=== PATIENT | female | born 1965 | race Caucasian/White ===

== ENCOUNTER → 2018-05-07 09:08 | Outpatient (CLI) | payer OTHER, SELFPAY ==
[2018-05-07 11:52] LABS: D Dimer 234 ng/mL (<230)
== END ==
PROVIDERS: Family Provider Family Medicine; Visit Provider Physician Assistant
DX: M25.562 Pain in left knee (principal)
CPT/HCPCS: 36415; 85379

== ENCOUNTER → 2018-10-12 07:16 | Outpatient (CLI) | payer OTHER, SELFPAY ==
[2018-10-12 07:59] LABS: Add Manual Diff / Slide Review NO; Basophils Absolute Auto 100 /uL (0-100); Eosinophils Absolute Auto 100 /uL (0-450); Eosinophils Percent Auto 2.9 % (2-4); Hemoglobin 14.3 g/dL (12.0-16.0); Lymphocytes Absolute Auto 1200 /uL (1100-4500); Lymphocytes Percent Auto 24.4 % (25-40); Mean Corpuscular HGB Conc 33.2 % (30-36); Mean Corpuscular Hemoglobin 30.4 PG (26-34); Mean Corpuscular Volume 91.5 fL (80-100); Monocytes Absolute Auto 300 /uL (0-900); Neutrophils Absolute Auto 3100 /uL (1500-7000); Neutrophils Percent Auto 64.7 % (50-75); Platelet Count 157 X10^3/uL (150-400); Red Blood Cell Count 4.69 X10^6/uL (4.0-5.2); Red Cell Distribution Width 13.3 % (11.6-14.8); White Blood Cell Count 4.8 X10^3/uL (4.5-11.0)
[2018-10-12 08:09] LABS: Alanine Aminotransferase 35 IU/L (9-52); Albumin 4.2 g/dL (3.5-5.0); Albumin Globulin Ratio 1.6 (1.0-2.8); Alkaline Phosphatase 59 U/L (38-126); Aspartate Aminotransferase 35 IU/L (14-36); BUN Creatinine Ratio 31.3 (6-22); Bilirubin Total 0.3 mg/dL (0.2-1.3); Blood Urea Nitrogen 25 mg/dL (7-17); Carbon Dioxide 28 mmol/L (22-32); Chloride 103 mmol/L (98-107); Cholesterol 141 mg/dL (140-199); Estimated Glomerular Filt Rate > 60.0 mL/min (>60); Globulin 2.6 g/dL (1.7-4.1); Glucose 83 mg/dL (70-100); HDL Cholesterol 48 mg/dL (40-60); HEMOLYSIS < 15 (0-50); LDL Cholesterol Calculated 79 mg/dL (<100); Potassium 4.1 mmol/L (3.4-5.1); Sodium 140 mmol/L (137-145); Total Protein 6.8 g/dL (6.3-8.2); Triglycerides 71 mg/dL (35-150)
[2018-10-12 08:51] LABS: Free T3, Triiodothyronine Free 3.14 pg/mL (2.77-5.27); Free T4, Direct Thyroxine 1.15 ng/dL (0.78-2.19)
[2018-10-12 09:05] LABS: Thyroid Stimulating Hormone 3.28 uIU/mL (0.47-4.68)
[2018-10-14 14:21] LABS: Dehydroepiandrosterone Sulfate 17 mcg/dL (8-188)
== END ==
PROVIDERS: PCP Family Medicine; Visit Provider Family Medicine
DX: Z00.00 Encounter for general adult medical examination without abnormal findings (principal); Z13.220 Encounter for screening for lipoid disorders; Z78.0 Asymptomatic menopausal state; N95.9 Unspecified menopausal and perimenopausal disorder
CPT/HCPCS: 36415; 80053; 80061; 82627; 84439; 84443; 84481; 85025

== ENCOUNTER → 2018-12-16 10:53 | Outpatient (CLI) | payer OTHER, SELFPAY ==
[2018-12-19 00:11] LABS: Fecal Immunochemical Test NOT DETECTED (NOT DETECTED)
== END ==
PROVIDERS: PCP Family Medicine; Visit Provider Family Medicine
DX: Z12.11 Encounter for screening for malignant neoplasm of colon (principal)
CPT/HCPCS: 82274

== ENCOUNTER → 2019-06-07 16:25 | Outpatient (CLI) | payer OTHER, SELFPAY ==
[2019-06-07 18:14] LABS: HIV 1 & 2 Ab/Ag 4th Gen Combo NEGATIVE (NEGATIVE); Hep C Virus Ab w/Reflex Quant NEGATIVE s/c (NEGATIVE)
[2019-06-07 18:43] LABS: Urine N gonorrhoeae NOT DETECTED
[2019-06-07 19:35] LABS: Urine Chlamydia NOT DETECTED
[2019-06-09 17:38] LABS: RPR Screen Nonreactive (Nonreactive)
== END ==
PROVIDERS: PCP Family Medicine; Visit Provider Family Medicine
DX: Z11.3 Encounter for screening for infections with a predominantly sexual mode of transmission (principal)
CPT/HCPCS: 36415; 86592; 86803; 87389; 87491; 87591

== ENCOUNTER → 2021-03-30 07:16 | Outpatient (CLI) | payer OTHER, SELFPAY ==
[2021-04-03 18:07] LABS: Fecal Immunochemical Test Negative (Negative)
== END ==
PROVIDERS: PCP Family Medicine; Referring Provider Family Medicine; Visit Provider Family Medicine
DX: Z12.11 Encounter for screening for malignant neoplasm of colon (principal)
CPT/HCPCS: 82274

== ENCOUNTER → 2021-03-31 08:01 | Outpatient (CLI) | payer OTHER, SELFPAY ==
[2021-04-06 08:42] LABS: Alanine Aminotransferase 33 IU/L (<35); Albumin 3.4 g/dL (3.5-5.0); Albumin Globulin Ratio 1.7 (1.0-2.8); Alkaline Phosphatase 50 U/L (38-126); Aspartate Aminotransferase 47 IU/L (14-36); BUN Creatinine Ratio 42.3 (6-22); Blood Urea Nitrogen 30 mg/dL (7-17); Calcium 8.7 mg/dL (8.4-10.2); Carbon Dioxide 27 mmol/L (22-32); Chloride 104 mmol/L (98-107); Cholesterol 177 mg/dL (140-199); Estimated Glomerular Filt Rate > 60.0 mL/min (>60); Glucose 85 mg/dL (70-100); HDL Cholesterol 66 mg/dL (40-60); HEMOLYSIS < 15 (0-50); LDL Cholesterol Calculated 96 mg/dL (<100); Potassium 4.3 mmol/L (3.4-5.1); Sodium 136 mmol/L (137-145); Total Protein 5.4 g/dL (6.3-8.2); Triglycerides 75 mg/dL (35-150)
[2021-04-06 08:45] LABS: Bilirubin Total < 0.1 mg/dL (0.2-1.3)
== END ==
PROVIDERS: PCP Family Medicine; Referring Provider Family Medicine; Visit Provider Family Medicine
DX: Z13.1 Encounter for screening for diabetes mellitus (principal); Z13.220 Encounter for screening for lipoid disorders; E03.9 Hypothyroidism, unspecified
CPT/HCPCS: 36415; 80053; 80061; 84443

== ENCOUNTER → 2021-05-08 06:46 | Outpatient (CLI) | payer OTHER, SELFPAY ==
[2021-05-08 08:08] LABS: Alanine Aminotransferase 21 IU/L (<35); Albumin 3.9 g/dL (3.5-5.0); Alkaline Phosphatase 58 U/L (38-126); Aspartate Aminotransferase 34 IU/L (14-36); BUN Creatinine Ratio 31.7 (6-22); Bilirubin Total 0.4 mg/dL (0.2-1.3); Blood Urea Nitrogen 20 mg/dL (7-17); Calcium 9.6 mg/dL (8.4-10.2); Carbon Dioxide 29 mmol/L (22-32); Chloride 106 mmol/L (98-107); Estimated Glomerular Filt Rate > 60.0 mL/min (>60); Glucose 102 mg/dL (70-100); HEMOLYSIS < 15 (0-50); Sodium 138 mmol/L (137-145); Total Protein 5.9 g/dL (6.3-8.2)
[2021-05-08 08:18] LABS: Potassium 5.6 mmol/L (3.4-5.1)
== END ==
PROVIDERS: PCP Family Medicine; Referring Provider Family Medicine; Visit Provider Family Medicine
DX: R74.01 Elevation of levels of liver transaminase levels (principal)
CPT/HCPCS: 36415; 80053

== ENCOUNTER → 2021-06-02 08:02 | Outpatient (CLI) | payer OTHER, SELFPAY ==
[2021-06-02 09:08] LABS: BUN Creatinine Ratio 28.8 (6-22); Blood Urea Nitrogen 21 mg/dL (7-17); Carbon Dioxide 29 mmol/L (22-32); Chloride 102 mmol/L (98-107); Estimated Glomerular Filt Rate > 60.0 mL/min (>60); Glucose 95 mg/dL (70-100); HEMOLYSIS < 15 (0-50); Potassium 4.3 mmol/L (3.4-5.1); Sodium 134 mmol/L (137-145)
== END ==
PROVIDERS: PCP Family Medicine; Referring Provider Family Medicine; Visit Provider Family Medicine
DX: E87.5 Hyperkalemia (principal)
CPT/HCPCS: 36415; 80048

== ENCOUNTER → 2021-07-23 16:07 | Outpatient (CLI) | payer OTHER, SELFPAY ==
[2021-07-23 16:38] LABS: COVID19 -Nasal RAPID Negative (Negative)
== END ==
PROVIDERS: PCP Family Medicine; Referring Provider Physician Assistant; Visit Provider Physician Assistant
DX: Z20.822 Contact with and (suspected) exposure to COVID-19 (principal)
CPT/HCPCS: 87635

== ENCOUNTER → 2022-04-09 07:24 | Outpatient (CLI) | payer OTHER, SELFPAY ==
[2022-04-09 08:25] LABS: Add Manual Diff / Slide Review NO; Basophils Absolute Auto 0 /uL (0-100); Basophils Percent Auto 0.8 % (0-2); Eosinophils Absolute Auto 300 /uL (0-450); Eosinophils Percent Auto 5.5 % (2-4); Hematocrit 39.9 % (36-46); Hemoglobin 13.6 g/dL (12.0-16.0); Lymphocytes Absolute Auto 1600 /uL (1100-4500); Lymphocytes Percent Auto 33.4 % (25-40); Mean Corpuscular HGB Conc 34.1 % (30-36); Mean Corpuscular Hemoglobin 30.6 PG (26-34); Mean Corpuscular Volume 89.6 fL (80-100); Monocytes Absolute Auto 400 /uL (0-900); Monocytes Percent Auto 7.5 % (3-14); Neutrophils Absolute Auto 2500 /uL (1500-7000); Neutrophils Percent Auto 52.8 % (50-75); Platelet Count 182 X10^3/uL (150-400); Red Blood Cell Count 4.45 X10^6/uL (4.0-5.2); Red Cell Distribution Width 13.1 % (11.6-14.8); White Blood Cell Count 4.7 X10^3/uL (4.5-11.0)
[2022-04-09 08:49] LABS: Alanine Aminotransferase 21 IU/L (<35); Albumin Globulin Ratio 1.4 (1.0-2.8); Alkaline Phosphatase 70 U/L (38-126); Aspartate Aminotransferase 32 IU/L (14-36); BUN Creatinine Ratio 23.4 (6-22); Bilirubin Total 0.4 mg/dL (0.2-1.3); Blood Urea Nitrogen 15 mg/dL (7-17); Calcium 8.4 mg/dL (8.4-10.2); Carbon Dioxide 26 mmol/L (22-32); Chloride 102 mmol/L (98-107); Cholesterol 188 mg/dL (140-199); Estimated Glomerular Filt Rate > 60 mL/min (>60); Globulin 2.9 g/dL (1.7-4.1); Glucose 92 mg/dL (70-100); HDL Cholesterol 60 mg/dL (40-60); HEMOLYSIS 17 (0-50); LDL Cholesterol Calculated 102 mg/dL (<100); Sodium 137 mmol/L (137-145); Total Protein 6.9 g/dL (6.3-8.2); Triglycerides 128 mg/dL (35-150)
[2022-04-09 09:07] LABS: Free T3, Triiodothyronine Free 3.54 pg/mL (2.77-5.27); Free T4, Direct Thyroxine 1.04 ng/dL (0.78-2.19)
[2022-04-09 09:20] LABS: TSH w/ Reflex to FT4 2.72 uIU/mL (0.47-4.68)
== END ==
PROVIDERS: PCP Family Medicine; Referring Provider Family Medicine; Visit Provider Family Medicine
DX: E03.9 Hypothyroidism, unspecified (principal); R68.89 Other general symptoms and signs; Z13.9 Encounter for screening, unspecified
CPT/HCPCS: 36415; 80053; 80061; 84439; 84443; 84481; 85025

== ENCOUNTER → 2022-04-13 09:36 | Outpatient (CLI) | payer OTHER, SELFPAY ==
--- NOTE | 2022-04-13 09:39 | DI.MRI.S_ITS ---
PROCEDURE: MR ABDOMEN WO/W CON INDICATIONS: HEPATOMEGALY TECHNIQUE: Coronal HASTE, axial 2D FLASH in- and [id number]; axial breath-hold T2 FSE. Dynamic axial VIBE during the administration of contrast; post-contrast coronal VIBE or 2D FLASH with fat saturation from the hepatic dome to the iliac crests. Restricted diffusion weighted imaging and ADC may be performed. 20 cc ProHance IV contrast. COMPARISON: None. FINDINGS: Image quality: Good. Lung bases: No basal pleural effusions. Heart size is normal. Solid organs: Liver is prominent size. There are 3 hepatic lesions identified. -segment 7 measuring 5.3 x 4.9 cm, (07/23). Possible T2 hyperintense central scar. -segment 8 at the dome measuring 1.4 x 0.9 cm, (07/16). -segment 5 measuring 1.8 x 1.6 cm, (49). The lesions demonstrate mild T2 hyperintensity, arterial hyperenhancement which persists on the portal venous and delayed phases, intrinsic T1 hypointense or isointense signal, no fat signal, no restricted diffusion. Gallbladder is within normal limits. Possible sludge. Biliary system is non dilated. Pancreas is normal in morphology. Spleen is normal in size and enhancement. No adrenal nodules. Both kidneys demonstrate normal size and enhancement, without hydronephrosis. Nodes and vessels: No retroperitoneal or mesenteric adenopathy by size criteria. Aorta and inferior vena cava are normal in size. Bowel and peritoneum: Unenhanced bowel loops are normal in caliber. Diverticulosis. No free fluid. Bones and soft tissues: Tiny umbilical hernia. Bone marrow is normal in overall signal. IMPRESSION: 1. Three arterial hyperenhancing hepatic lesions which most likely represent hepatic adenomas. One of the lesions could represent a hepatic adenoma or focal nodular hyperplasia. The largest measuring 5.3 cm in segment 7. -MRI liver with Eovist or biopsy may be helpful for further characterization. 2. Liver is prominent size. 3. Possible gallbladder sludge. 4. Diverticulosis. Dictated by: Yannick Kelley M.D. on 04/15/2022 at 8:40 Approved by: Yannick Kelley M.D. on 04/15/2022 at 9:01
== END ==
PROVIDERS: PCP Family Medicine; Referring Provider Physician Assistant; Visit Provider Physician Assistant
DX: R16.0 Hepatomegaly, not elsewhere classified (principal); R10.11 Right upper quadrant pain; K57.90 Diverticulosis of intestine, part unspecified, without perforation or abscess without bleeding
CPT/HCPCS: 74183; A9579

== ENCOUNTER → 2022-04-17 07:07 | Outpatient (CLI) | payer OTHER, SELFPAY ==
--- NOTE | 2022-04-17 07:09 | DI.MRI.S_ITS ---
PROCEDURE: MR ABDOMEN WO/W CON INDICATIONS: FU MRI Abd 04/13/22 TECHNIQUE: Coronal HASTE, axial 2D FLASH in- and [id number]; axial breath-hold T2 FSE. Dynamic axial VIBE during the administration of contrast; post-contrast coronal VIBE or 2D FLASH with fat saturation from the hepatic dome to the iliac crests. Optional diffusion weighted imaging and ADC may be performed. COMPARISON: [facility], MR, MR ABDOMEN WO/W CON, 04/13/2022, 9:58. FINDINGS: Image quality: Adequate. Images are denoted as (series #/image #). Lung bases: No basal pleural effusions. Liver: Three lesions are present as before, all demonstrating arterial phase hyperenhancement with enhancement on 20 minute delayed post contrast images. -segment 8/7: 5.9 centimeters (). -segment 4A/8: 2.1 centimeters (07/15). -segment 5: A 2.3 centimeters (). Solid organs: Gallbladder is unremarkable. Biliary system is non dilated. Pancreas is normal in morphology. Spleen is normal in size and enhancement. No adrenal nodules. No hydronephrosis. Nodes and vessels: No retroperitoneal or mesenteric adenopathy by size criteria. Aorta and inferior vena cava are normal in size. Bowel and peritoneum: Unenhanced bowel loops are normal in caliber. No free fluid. Bones and soft tissues: Bone marrow is normal in overall signal. IMPRESSION: Previously demonstrated hepatic lesions demonstrate enhancement on delayed/hepatobiliary phase images, most consistent with focal nodular hyperplasia. Rarely, hepatic adenomas can have this appearance. Dictated by: Blane Cruz M.D. on 04/17/2022 at 8:34 Approved by: Blane Cruz M.D. on 04/17/2022 at 8:56
== END ==
PROVIDERS: PCP Family Medicine; Referring Provider Family Medicine; Visit Provider Family Medicine
DX: K76.9 Liver disease, unspecified (principal); R16.0 Hepatomegaly, not elsewhere classified; R10.11 Right upper quadrant pain
CPT/HCPCS: 74183

== ENCOUNTER → 2022-11-16 07:06 | Outpatient (CLI) | payer OTHER, SELFPAY ==
--- NOTE | 2022-11-16 07:07 | DI.MRI.S_ITS ---
PROCEDURE: MR ABDOMEN WO/W CON INDICATIONS: Follow up focal nodular hyperplasia TECHNIQUE: Coronal HASTE, axial 2D FLASH in- and [id number]; axial breath-hold T2 FSE. Dynamic axial VIBE during the administration of contrast; post-contrast coronal VIBE or 2D FLASH with fat saturation from the hepatic dome to the iliac crests. Optional diffusion weighted imaging and ADC may be performed. COMPARISON: [facility], MR, MR ABDOMEN WO/W CON, 04/17/2022, 7:44. FINDINGS: Image quality: Excellent. Lung bases: No basal pleural effusions. Heart size is normal. Liver: Again seen are multiple T1 isointense, T2 isointense lesions in the liver with arterial enhancement which slightly fades on delayed sequences. There are approximately 5 lesions in total. Dominant lesion measurement as follows: -6.1 cm in segment 8/7, previously 5.9 cm (series 12, image 30). -2.1 cm in segment 4A/8, previously 2.1 cm (series 12, image 20). -2.2 cm in segment 5: Previously 2.3 cm (series 12, image 51). Solid organs: Gallbladder is unremarkable. Biliary system is non dilated. Pancreas is normal in morphology. Spleen is normal in size and enhancement. No adrenal nodules. Both kidneys demonstrate normal size and enhancement, without hydronephrosis. Nodes and vessels: No retroperitoneal or mesenteric adenopathy by size criteria. Aorta and inferior vena cava are normal in size. Bowel and peritoneum: Unenhanced bowel loops are normal in caliber. No free fluid. Bones and soft tissues: No ventral hernias. Bone marrow is normal in overall signal. IMPRESSION: Accounting for slice selection and differences in measuring technique, there has been no significant interval change in the presumed focal nodular hyperplasia of the liver. Given the number, focal nodular hyperplasia syndrome is a consideration. Dictated by: Erick Childs M.D. on 11/18/2022 at 8:16 Approved by: Erick Childs M.D. on 11/18/2022 at 8:23
== END ==
PROVIDERS: PCP Family Medicine; Referring Provider Family Medicine; Visit Provider Family Medicine
DX: K76.89 Other specified diseases of liver (principal)
CPT/HCPCS: 74183; A9579

== ENCOUNTER → 2023-04-26 07:56 | Outpatient (CLI) | payer OTHER, SELFPAY ==
[2023-04-28 20:29] LABS: Fecal Immunochemical Test Negative (Negative)
== END ==
PROVIDERS: PCP Family Medicine; Referring Provider Physician Assistant; Visit Provider Physician Assistant
DX: Z12.11 Encounter for screening for malignant neoplasm of colon (principal)
CPT/HCPCS: 82274

== ENCOUNTER → 2023-10-13 07:18 | Outpatient (CLI) | payer OTHER, SELFPAY ==
--- NOTE | 2023-10-13 08:12 | DI.MRI.S_ITS ---
PROCEDURE: MR ABDOMEN LIVER PROTOCOL INDICATIONS: liver lesion TECHNIQUE: Coronal HASTE, axial 2D FLASH in- and [id number]; axial breath-hold T2 FSE. Dynamic axial VIBE during the administration of contrast; post-contrast coronal VIBE or 2D FLASH with fat saturation from the hepatic dome to the iliac crests. Optional diffusion weighted imaging and ADC may be performed. COMPARISON: [facility], MR, MR ABDOMEN WO/W CON, 11/16/2022, 7:10. FINDINGS: Image quality: Diagnostic. Lung bases: Unremarkable. Liver: Multiple liver lesions are again seen, with stable managing properties of T1/T2 isointense signal, rapid enhancement and fading. These retain contrast on the hepatobiliary phase. Dominant lesions as follows: -6 mm segment 7 lesion, previously 6.1 cm (series 9, image 27). -2.2 cm lesion at the liver dome, unchanged (series 9, image 16). Gallbladder: No gallstones or wall thickening. Biliary ducts: No biliary dilation. Pancreas: No ductal dilation. Spleen: Size is within normal limits. Adrenal Glands: No adrenal nodules. Kidneys and Ureters: No hydronephrosis. No solid mass. No complex renal cystic lesion which requires follow up. Stomach and Bowel: Normal colonic caliber, without significant wall thickening. Peritoneum: No abnormal intraperitoneal fluid. No free air. Ventral Wall: No hernia. Abdominal Nodes: No retroperitoneal or mesenteric adenopathy by size criteria. Vessels: Aorta and inferior vena cava are normal in size. Bones: No aggressive osseous abnormality. IMPRESSION: Stable liver lesions which have imaging characteristics most consistent with focal nodular hyperplasia, given retention of contrast on the hepatobiliary phase. Given number, focal nodular hyperplasia syndrome is a consideration. Dictated by: Erick Childs M.D. on 10/13/2023 at 9:38 Approved by: Erick Childs M.D. on 10/13/2023 at 9:43
== END ==
LOC: MRI 07:19
PROVIDERS: PCP Family Medicine; Referring Provider Family Medicine; Visit Provider Family Medicine
DX: K76.89 Other specified diseases of liver (principal); K58.9 Irritable bowel syndrome, unspecified; N89.8 Other specified noninflammatory disorders of vagina
CPT/HCPCS: 74183; 87210; 87220; A9579

== ENCOUNTER → 2023-10-13 16:47 | Outpatient (CLI) | payer OTHER, SELFPAY | PROVIDERS: PCP Family Medicine; Visit Provider Family Medicine | DX: N89.8 Other specified noninflammatory disorders of vagina (principal) | CPT/HCPCS: 87210; 87220 ==

== ENCOUNTER → 2024-02-13 06:56 | Outpatient (CLI) | payer OTHER, SELFPAY ==
[2024-02-13 08:23] LABS: Cholesterol 235 mg/dL (140-199); HDL Cholesterol 76 mg/dL (40-60); LDL Cholesterol Calculated 138 mg/dL (<100); Triglycerides 103 mg/dL (35-150)
[2024-02-13 08:28] LABS: High Sensitivity CRP - Cardiac 2.3 mg/L (1.0-3.0)
== END ==
LOC: LAB 06:57
PROVIDERS: PCP Family Medicine; Referring Provider Family Medicine; Visit Provider Family Medicine
DX: E66.9 Obesity, unspecified (principal); E78.5 Hyperlipidemia, unspecified
CPT/HCPCS: 36415; 80061; 86140

== ENCOUNTER 2024-05-03 09:16 | Emergency (ER) | payer OTHER, SELFPAY ==
[2024-05-03] VITALS (10 sets, daily range): BP systolic 88–117; BP diastolic 53–77; PULSE 72–93; RESP 24; TEMP 36.5; O2SAT 90–98; BMI 29.2
--- NOTE | 2024-05-03 09:27 | EKG_ITS ---
[address] [address] Test Date: 2024-05-03 Pat Name: Kasey Presley Department: [facility] Room: Gender: Female [employer]: SURAJ : 1965 Requested By: Order Number: [id number] Reading MD: Tonny Villeda MD Measurements Intervals [place] Rate: 83 P: 40 DC: 114 QRS: 36 QRSD: 80 T: 64 QT: 364 QTc: 427 Interpretive Statements Normal sinus rhythm Electronically Signed On 05-03-2024 13:42:43 PDT by Tonny Villeda MD
--- NOTE | 2024-05-03 09:27 | ED.SYNCOPE ---
HPI - Syncope General Chief Complaint: Syncope Stated Complaint: fall, syncope Time Seen by Provider: 05/03/24 09:25 History of Present Illness HPI narrative: Patient is a 58-year-old female history of migraines multiple allergies to medications such as NSAIDs Tylenol and aspirin causing rebound migraine headaches so she does not take anything presents today with syncopal episode in the shower. She reports she has had some upper respiratory like symptoms for about 2 weeks some nasal congestion some coughing. She is cause coughing quite a bit over the weekend and now has significant pain on her right side. This morning in the shower she felt something was going on so she sat down on the bench and then passed out. No significant head injury, no neck pain she has not on anticoagulation. She denies having significant low back spasm. She went to the walk-in clinic for her upper respiratory like stuff but was sent here for her syncopal episode. She is found to be mildly hypotensive, she reports that her normal blood pressure is 110 region. She denies significant chest pain only rib pain where she has been hurting from coughing. No real fever nasal congestion. She can not take any [id number] medications due to her allergies. Related Data Home Medications Medication Instructions Recorded Confirmed multivitamin with iron PO 03/06/23 05/03/24 Previous Rx's Medication Instructions Recorded sumatriptan succinate 6 mg/0.5 mL See Rx Instructions .Route 07/08/22 subcutaneous pen injector .COMPLEX #1 mL sumatriptan succinate 100 mg tablet See Rx Instructions .Route 04/17/23 .COMPLEX #9 tabs topical progesterone 75 mg topical DAILY #60 applic 10/01/23 estradiol 0.025 mg/24 hr 1 patch transdermal 2XW #24 ea 02/16/24 semiweekly transdermal patch albuterol sulfate 90 mcg/actuation 2 puff inhalation Q4-6H PRN 05/03/24 aerosol inhaler shortness of breath or wheezing #8.5 grams diazepam 2 mg tablet (Valium) 2 mg PO BID PRN muscle spasm #14 05/03/24 tabs Allergies Allergy/AdvReac Type Severity Reaction Status Date / Time Antihistamines - Alkylamine Allergy Verified 05/03/24 09:25 ibuprofen Allergy Verified 05/03/24 09:25 meperidine [From Demerol] Allergy Verified 05/03/24 09:25 mushroom Allergy Anaphylaxis Verified 05/03/24 09:25 neomycin Allergy causes Verified 05/03/24 09:25 [From Neosporin blisters ([id number])] and non healing sores acetaminophen [From Tylenol] AdvReac Intermediate rebound Verified 05/03/24 09:25 migraine bacitracin AdvReac causes Verified 05/03/24 09:25 blister and non healing sores scents Allergy Migraine Uncoded 05/03/24 09:25 Patient History Medical History Cervical polyp Focal nodular hyperplasia of liver (~2021) Eczema Alopecia Seasonal allergies Migraines CRPS (complex regional pain syndrome) Chicken pox Anemia (~2002) Tinnitus Adenomyosis Painful menstrual periods Ovarian cyst Endometriosis Abnormal Pap smear of cervix (~1989) Irritable bowel syndrome Fatigue Low testosterone Surgical History History of laparoscopy History of laparoscopy History of right oophorectomy History of appendectomy History of hysterectomy, supracervical History of appendectomy History of partial hysterectomy Anesthesia Family History Father Hypertension Hyperlipidemia Mother Hyperlipidemia Back problem Psoriasis Macular degeneration Social History marital status: number of children: 2 household members: spouse lives independently: Yes education level: college occupational status: employed Smoking Status: Never smoker second hand exposure: Yes (childhood) alcohol intake: current (social, ~1 or less per week ) substance use type: does not use Smoking Status: Never smoker Exam Initial Vital Signs Initial Vital Signs: Vital Signs Pulse Rate 93 H 05/03/24 09:27 Blood Pressure 88/56 L 05/03/24 09:27 Pulse Oximetry 98 05/03/24 09:27 GENERAL: Alert 58-year-old female appears uncomfortable HEENT: Head atraumatic,EOMI, pupils reactive, face symmetric, moist mucous membranes CARDIOVASCULAR: Regular rate and rhythm without murmurs, rubs or gallops. RESPIRATORY: Breath sounds equal bilaterally, no wheezes rales or rhonchi. ABDOMEN: Soft, nontender. Normoactive bowel sounds all 4 quadrants. No guarding or rebound. BACK: Low back spasming more right than left able to lower extremity EXTREMITIES: Normal range of motion, no clubbing or edema. Neurovascularly intact NEUROLOGICAL: Alert and oriented x4.Normal gait and speech. Cranial nerves II through XII grossly intact. SKIN: Warm, dry, no laceration, no petechiae, no rashes or lesions. Course Orders Ordered: ED Orders 05/03/24 09:27 XR ribs RT min 3V w CXR1V Stat EKG-12 Lead Stat 05/03/24 09:33 Complete Blood Count AUTO DIFF Stat Comprehensive Metabolic Panel Stat D Dimer Stat Lactate (Lactic Acid) Stat Lipase Stat Troponin & CK Cardiac Panel Stat 05/03/24 09:37 Respiratory Panel (Film Array) Stat 05/03/24 11:45 CT angio chest PE protocol Stat Discontinued Medications Sodium Chloride (Normal Saline 0.9%) 1,000 mls @ 1,000 mls/hr IV BOLUS ONE Stop: 05/03/24 10:42 Last Infusion: 05/03/24 11:17 Dose: Infused Documented By: Admin: 05/03/24 09:46 Dose: 1,000 mls/hr Documented By: SULEMAN Lorazepam (Lorazepam 2 Mg/Ml Inj) 0.5 mg IV NOW ONE Stop: 05/03/24 09:45 Last Admin: 05/03/24 09:55 Dose: 0.5 mg Documented By: SULEMAN Vital Signs Vital signs: Vital Signs - 8 hr 05/03/24 09:27 05/03/24 09:27 05/03/24 09:29 Temperature 97.7 F Pulse Rate 93 H 91 H Respiratory Rate 24 Blood Pressure 88/56 L 117/53 L Pulse Oximetry 98 95 Oxygen Delivery Method Room Air 05/03/24 09:29 05/03/24 09:29 05/03/24 09:30 Temperature Pulse Rate 87 Respiratory Rate Blood Pressure 117/53 L 93/55 L Pulse Oximetry 96 Oxygen Delivery Method 05/03/24 09:30 05/03/24 09:55 05/03/24 09:55 Temperature Pulse Rate 86 80 Respiratory Rate Blood Pressure 110/77 Pulse Oximetry 97 98 Oxygen Delivery Method 05/03/24 10:00 05/03/24 10:30 05/03/24 11:00 Temperature Pulse Rate 78 72 75 Respiratory Rate Blood Pressure Pulse Oximetry 94 94 91 Oxygen Delivery Method 05/03/24 11:30 05/03/24 12:08 05/03/24 12:09 Temperature Pulse Rate 84 80 Respiratory Rate Blood Pressure 107/61 Pulse Oximetry 90 L 97 Oxygen Delivery Method 05/03/24 12:09 Temperature Pulse Rate 80 Respiratory Rate Blood Pressure Pulse Oximetry 97 Oxygen Delivery Method MDM - Syncope Lab Data 05/03/24 09:33 05/03/24 09:33 Labs: Lab Results 05/03/24 05/03/24 Range/Units 09:33 09:37 WBC 8.3 (4.5-11.0) X10^3/uL RBC 5.19 (4.0-5.2) X10^6/uL Hgb 15.9 (12.0-16.0) g/dL Hct 46.9 H (36-46) % MCV 90.4 (80-100) fL MCH 30.7 (26-34) PG MCHC 33.9 (30-36) % RDW 13.2 (11.6-14.8) % Plt Count 229 (150-400) X10^3/uL Neut % (Auto) 78.0 H (50-75) % Lymph % (Auto) 14.3 L (25-40) % [place] % (Auto) 6.7 (3-14) % Eos % (Auto) 0.3 L (2-4) % Baso % (Auto) 0.7 (0-2) % Neut # (Auto) 6500 (1425-0874) /uL Lymph # (Auto) 1200 (7450-4628) /uL [place] # (Auto) 600 (0-900) /uL Eos # (Auto) 0 (0-450) /uL Baso # (Auto) 100 (0-100) /uL D-Dimer 4942 H (<500) ng/ml Sodium 136 L (137-145) mmol/L Potassium 4.8 (3.4-5.1) mmol/L Chloride 105 (98-107) mmol/L Carbon Dioxide 20 L (22-32) mmol/L BUN 21 H (7-17) mg/dL Creatinine 0.88 (0.52-1.04) mg/dL Estimated GFR > 60 (>60) mL/min BUN/Creatinine Ratio 23.9 H (6-22) Glucose 132 H (70-100) mg/dL Lactate 1.7 (0.7-2.1) mmol/L Calcium 9.9 (8.4-10.2) mg/dL Total Bilirubin 0.7 (0.2-1.3) mg/dL AST 46 H (14-36) IU/L ALT 24 (<35) IU/L Alkaline Phosphatase 85 (38-126) U/L Total Creatine Kinase 46 (30-135) U/L Troponin I < 0.012 (0.01-0.034) ng/mL Total Protein 8.2 (6.3-8.2) g/dL Albumin 4.9 (3.5-5.0) g/dL Globulin 3.3 (1.7-4.1) g/dL Albumin/Globulin Ratio 1.5 (1.0-2.8) Lipase 296 (23-300) U/L Chlamy pneumoniae PCR Not detected (Not Detect) Adenovirus (PCR) Not detected (Not Detect) B. pertussis DNA (PCR) Not detected (Not Detect) B.parapertussis DNA PCR Not detected (Not Detecte) Coronavirus OC43 (PCR) Not detected (Not Detect) Coronavirus HKU1 (PCR) Not detected (Not Detect) Coronavirus 229E (PCR) Not detected (Not Detect) SARS-CoV-2 (PCR) Detected H (Not Detecte) Coronavirus NL63 (PCR) Not detected (Not Detect) Human Metapneumovir PCR Not detected (Not Detect) Influenza Type A (PCR) Not detected (Not Detect) Influenza Type B (PCR) Not detected (Not Detect) M. pneumoniae (PCR) Not detected (Not Detect) Parainfluenza 1 (PCR) Not detected (Not Detect) Parainfluenza 2 (PCR) Not detected (Not Detect) Parainfluenza 3 (PCR) Not detected (Not Detect) Parainfluenza 4 (PCR) Not detected (Not Detect) RSV (PCR) Not detected (Not Detect) Entero/Rhino (PCR) Not detected (Not Detect) Imaging Data Chest x-ray: Radiologist's Impression: PROCEDURE: XR RIBS RT MIN 3V W CXR 1V INDICATIONS: fall pain TECHNIQUE: 2 views of the ribs were acquired, along with a single view chest. COMPARISON: None. FINDINGS: Surgical changes and devices: None. Bones and chest wall: No fractures or dislocations. No suspicious bony lesions. Overlying soft tissues appear unremarkable. Lungs and pleura: No pleural effusions or pneumothorax. Lungs appear clear. Mediastinum: Mediastinal contours appear normal. Heart size is normal. IMPRESSION: No displaced rib fractures or pneumothorax. Dictated by: Cesar Martines M.D. on 05/03/2024 at 10:03 CT scan - chest: Radiologist's Impression: PROCEDURE: CT ANGIO CHEST PE PROTOCOL INDICATIONS: syncope covid dimer >4000 TECHNIQUE: After the administration of intravenous contrast, 2 mm thick sections acquired from the pulmonary apices to the posterior costophrenic angles. 3-dimensional maximum intensity projection (MIP) coronal and sagittal reformats were then acquired through the thorax. For radiation dose reduction, the following was used: automated exposure control, adjustment of mA and/or kV according to patient size. COMPARISON: None. FINDINGS: Image quality: Diagnostic. Pulmonary arteries: Pulmonary arteries are normal in size, and demonstrate no intraluminal filling defects to suggest central pulmonary embolism. Lower Neck: No enlarged lymph nodes. Thyroid: No thyroid nodules which require sonographic follow up, per consensus guidelines. Axillae: No enlarged lymph nodes. Chest Wall: Unremarkable. Bones: Unremarkable. Lungs and Pleura: No pneumothorax or pleural effusions. No consolidation or suspicious nodules. Heart: Heart size is normal. No pericardial effusion. Thoracic Vessels: No aortic aneurysm. Mediastinum and Marva: No enlarged lymph nodes. Esophagus: No wall thickening. No hiatal hernia. Upper Abdomen: Colonic interposition between the liver and hemidiaphragm. IMPRESSION: No pulmonary embolus. No acute cardiopulmonary process. Dictated by: Erick Childs M.D. on 05/03/2024 at 12:20 ECG Data Attestation: I personally reviewed and interpreted this ECG as follows: Interpretation: Normal sinus rhythm rate 83 NC interval 114 QRS [address] or T-wave inversions MDM Narrative Medical decision making narrative: MDM CC: Syncope rib pain upper respiratory infection Complicating co-morbidities: Multiple allergies to multiple xiex-qaa-vjefkkk medications including NSAIDs and Tylenol Medical records reviewed: Seen at walk-in clinic today but sent straight to the ED Previous primary care visits reviewed as well Differential considered: Vaso vagal, pulmonary embolism cardiogenic, infectious Exam documented above, pertinent findings include: Significant back vertebral tenderness tender right rib subcutaneous Lab Test results independently reviewed as above. Pertinent findings: COVID positive D-dimer 4942 WBCs 8.3 hemoglobin stable at 15.9 CMP shows a stable electrolytes potassium is 4.8 bicarb 20 BUN creatinine 0.8 glucose 132 Lactate is 1.7 Troponin negative Liver enzymes bilirubin lipase within normal limits Independently reviewed EKG as above no arrhythmia no ischemia Imaging studies independently reviewed: No rib fracture Consultations: [ ] Treatments: Ativan, IV fluids Re-evaluations: Patient had improvement Ativan with her back Discussion: Patient 58-year-old female presents with upper respiratory like symptoms and syncopal episode this morning. She is COVID positive which explains her upper respiratory symptoms. No significant injury from her fall she did not hit her head not on anticoagulation I am neurovascularly intact. I do not see need for imaging at this time. She requested some sort of muscle relaxer for her back due to her multiple allergies. She was given Ativan. Patient is found to have a significantly elevated D-dimer COVID positive in his syncopal episode. Concern for pulmonary embolism O2 ranges from 90% -96%. It does go up when she takes deep breaths. Fortunately CT angio does not show a pulmonary embolism. Recommended supportive care at this time. Ativan seem to work for her back spasm will start on Valium. Discussed with her albuterol inhaler for coughing, she reports that she has had albuterol in the past and has done okay. Discharge Plan Departure Patient Disposition: Home Clinical Impression: COVID-19, Syncope Instructions: COVID-19 Viral Test Activity Restrictions/Additional Instructions: *You have been diagnosed with COVID-19 *What to do: At this time go home and rest please stay hydrated Recommend heating pad for your back light stretches slight movement *Continue to take medications as directed Valium 2 mg every 12 hours if needed for muscle spasm Albuterol 1-2 puffs every 4 hours if needed for shortness of breath *Follow up with your primary care provider in 2-3 days or call [phone] *Return to ER if you should have increased weakness chest pain shortness of breath or any new, worsening or concerning symptoms CONTROLLED SUBSTANCE DISCHARGE (Narcotoic/benzodiazepine/Flexeril/Phenergan) 1. You have been prescribed narcotic medications, it does have acetaminophen/Tylenol/paracetamol in it, DO NOT TAKE MORE THAN 4,00mg in 24 hours of Tylenol. TRAMADOL DOES NOT CONTAIN TYLENOL 2. Please understand that we cannot provide further refills of narcotics, benzodiazepines or controlled substances through the ED and her pain management will need to be through your provider. 3. While on these medications you cannot drive or operate heavy machinery. 4. You cannot sign legal documents or perform any duties such as this. 5. As long as you're taking opiate pain medications he should also be taking a stool softener such as Colace, Dulcolax, MiraLAX or prune juice, to help avoid constipation. Prescriptions: New diazepam [Valium] 2 mg tablet 2 mg PO BID PRN (Reason: muscle spasm) Qty: 14 0RF albuterol sulfate 90 mcg/actuation HFA aerosol inhaler 2 puff INHALATION Q4-6H PRN (Reason: shortness of breath or wheezing) Qty: 8.5 0RF No Action multivitamin with iron PO sumatriptan succinate 6 mg/0.5 mL pen injector See Rx Instructions .ROUTE .COMPLEX Qty: 1 3RF Dose Instruction: INJECT 0.5 ML SUBQ ONCE Rx Instructions: INJECT 0.5 ML SUBQ ONCE. May repeat in hour. Maximum dose 12 mg in 24 hours. sumatriptan succinate 100 mg tablet See Rx Instructions .ROUTE .COMPLEX Qty: 9 2RF Dose Instruction: TAKE 1 TABLET BY MOUTH AT ONSET OF HEADACHE; IF NO RELIEF REPEAT 1 TABLET IN 2 HOURS. Rx Instructions: TAKE 1 TABLET BY MOUTH AT ONSET OF HEADACHE; IF NO RELIEF REPEAT 1 TABLET IN 2 HOURS. topical progesterone 75 mg topical DAILY Qty: 60 0RF estradiol 0.025 mg/24 hr patch semiweekly 1 patch transdermal 2XW Qty: 24 3RF Rx Instructions: apply 1 patch for 3 days alternating with 1 patch for 4 days each week Referrals: Malika Musa DO [Primary Care Provider] - Stand Alone Forms: Patient Portal/API
[2024-05-03] MEDS: SODIUM CHLORIDE 0.9% 1,000 ML 1000 ML IV (09:46)
[2024-05-03 09:55] LABS: Add Manual Diff / Slide Review NO; Alanine Aminotransferase 24 IU/L (<35); Albumin 4.9 g/dL (3.5-5.0); Albumin Globulin Ratio 1.5 (1.0-2.8); Alkaline Phosphatase 85 U/L (38-126); Aspartate Aminotransferase 46 IU/L (14-36); BUN Creatinine Ratio 23.9 (6-22); Basophils Absolute Auto 100 /uL (0-100); Basophils Percent Auto 0.7 % (0-2); Bilirubin Total 0.7 mg/dL (0.2-1.3); Blood Urea Nitrogen 21 mg/dL (7-17); Calcium 9.9 mg/dL (8.4-10.2); Carbon Dioxide 20 mmol/L (22-32); Chloride 105 mmol/L (98-107); Creatine Kinase 46 U/L (30-135); Eosinophils Absolute Auto 0 /uL (0-450); Eosinophils Percent Auto 0.3 % (2-4); Estimated Glomerular Filt Rate > 60 mL/min (>60); Globulin 3.3 g/dL (1.7-4.1); Glucose 132 mg/dL (70-100); Hematocrit 46.9 % (36-46); Hemoglobin 15.9 g/dL (12.0-16.0); Lipase 296 U/L (23-300); Lymphocytes Absolute Auto 1200 /uL (1100-4500); Lymphocytes Percent Auto 14.3 % (25-40); Mean Corpuscular HGB Conc 33.9 % (30-36); Mean Corpuscular Hemoglobin 30.7 PG (26-34); Mean Corpuscular Volume 90.4 fL (80-100); Monocytes Absolute Auto 600 /uL (0-900); Monocytes Percent Auto 6.7 % (3-14); Neutrophils Absolute Auto 6500 /uL (1500-7000); Platelet Count 229 X10^3/uL (150-400); Potassium 4.8 mmol/L (3.4-5.1); Red Blood Cell Count 5.19 X10^6/uL (4.0-5.2); Red Cell Distribution Width 13.2 % (11.6-14.8); Sodium 136 mmol/L (137-145); Total Protein 8.2 g/dL (6.3-8.2); White Blood Cell Count 8.3 X10^3/uL (4.5-11.0)
[2024-05-03] MEDS: LORazepam 2 MG/ML INJ 0.5 MG IV (09:55)
[2024-05-03 09:58] LABS: Lactate (Lactic Acid) 1.7 mmol/L (0.7-2.1)
[2024-05-03 09:59] LABS: HEMOLYSIS 93 (0-50)
[2024-05-03 10:06] LABS: Troponin I < 0.012 ng/mL (0.01-0.034)
--- NOTE | 2024-05-03 10:28 | PC.NURSE ---
Pt states that she feels more relaxed and not spasming as much. Pt a&ox4. States that she can lay in 1 position for longer periods of time.
[2024-05-03 10:36] LABS: Adenovirus Not Detected (Not Detect); B. parapertussis Not Detected (Not Detecte); Bordetella pertussis Not Detected (Not Detect); Chlamydophila pneumoniae Not Detected (Not Detect); Coronavirus 229E Not Detected (Not Detect); Coronavirus HKU1 Not Detected (Not Detect); Coronavirus NL 63 Not Detected (Not Detect); Coronavirus OC43 Not Detected (Not Detect); Human Metapneumovirus Not Detected (Not Detect); Human Rhinovirus/Enterovirus Not Detected (Not Detect); Influenza A Not Detected (Not Detect); Influenza B Not Detected (Not Detect); Mycoplasma pneumoniae Not Detected (Not Detect); Parainfluenza Virus 1 Not Detected (Not Detect); Parainfluenza Virus 2 Not Detected (Not Detect); Parainfluenza Virus 3 Not Detected (Not Detect); Parainfluenza Virus 4 Not Detected (Not Detect); Respiratory Syncytial Virus Not Detected (Not Detect)
[2024-05-03 10:37] LABS: SARS- CoV-2 Detected (Not Detecte)
[2024-05-03 11:35] LABS: D Dimer 4942 ng/ml (<500)
--- NOTE | 2024-05-03 11:45 | DI.CT.S_ITS ---
PROCEDURE: CT ANGIO CHEST PE PROTOCOL INDICATIONS: syncope covid dimer >4000 TECHNIQUE: After the administration of intravenous contrast, 2 mm thick sections acquired from the pulmonary apices to the posterior costophrenic angles. 3-dimensional maximum intensity projection (MIP) coronal and sagittal reformats were then acquired through the thorax. For radiation dose reduction, the following was used: automated exposure control, adjustment of mA and/or kV according to patient size. COMPARISON: None. FINDINGS: Image quality: Diagnostic. Pulmonary arteries: Pulmonary arteries are normal in size, and demonstrate no intraluminal filling defects to suggest central pulmonary embolism. Lower Neck: No enlarged lymph nodes. Thyroid: No thyroid nodules which require sonographic follow up, per consensus guidelines. Axillae: No enlarged lymph nodes. Chest Wall: Unremarkable. Bones: Unremarkable. Lungs and Pleura: No pneumothorax or pleural effusions. No consolidation or suspicious nodules. Heart: Heart size is normal. No pericardial effusion. Thoracic Vessels: No aortic aneurysm. Mediastinum and Marva: No enlarged lymph nodes. Esophagus: No wall thickening. No hiatal hernia. Upper Abdomen: Colonic interposition between the liver and hemidiaphragm. IMPRESSION: No pulmonary embolus. No acute cardiopulmonary process. Dictated by: Erick Childs M.D. on 05/03/2024 at 12:20 Approved by: Erick Childs M.D. on 05/03/2024 at 12:26
== END 2024-05-03 12:38 | disposition home or self-care (01) ==
PROVIDERS: Emergency Provider Emergency Medicine; PCP Family Medicine
DX: U07.1 COVID-19 (principal); R55 Syncope and collapse; R07.81 Pleurodynia; I95.9 Hypotension, unspecified
CPT/HCPCS: 36415; 71101; 71275; 80053; 82550; 83605; 83690; 84484; 85025; 85379; 87633; 93005; 96361; 96374; 99284; J2060; Q9967

== ENCOUNTER → 2024-06-13 12:29 | Outpatient (CLI) | payer OTHER, SELFPAY ==
--- NOTE | 2024-06-13 12:31 | DI.CT.S_ITS ---
PROCEDURE: CT THORACIC SPINE WO CON INDICATIONS: confirm T12 compression fracture TECHNIQUE: Noncontrast 3 mm thick sections acquired through the region of interest in the thoracic spine. Sagittal and coronal reformats were then constructed. For radiation dose reduction, the following was used: automated exposure control. COMPARISON: [facility], CT, CT ANGIO CHEST PE PROTOCOL, 05/03/2024, 12:03. FINDINGS: Image quality: Diagnostic Bones: Mild background degenerative changes. No traumatic subluxation. There is a slight superior endplate compression fracture at T12. Height loss is less than 50%. The fracture extends to the posterior cortex with mild retropulsion of the posterior fragment. Soft tissues: No paravertebral drainable fluid collections. IMPRESSION: T12 superior endplate fracture extending to posterior cortex with mild retropulsion. There is mild height loss less than 50%. Mild background spondylosis. Dictated by: David Melendrez M.D. on 06/13/2024 at 18:24 Approved by: David Melendrez M.D. on 06/13/2024 at 18:27
== END ==
LOC: CT 12:29
PROVIDERS: PCP Family Medicine; Referring Provider Chiropractor Independent Medical Examiner; Visit Provider Chiropractor Independent Medical Examiner
DX: S22.080A Wedge compression fracture of T11-T12 vertebra, initial encounter for closed fracture (principal); M47.814 Spondylosis without myelopathy or radiculopathy, thoracic region; X58.XXXA Exposure to other specified factors, initial encounter
CPT/HCPCS: 72128

== ENCOUNTER → 2024-06-15 17:06 | Outpatient (CLI) | payer OTHER, SELFPAY ==
--- NOTE | 2024-06-15 17:07 | DI.MRI.S_ITS ---
PROCEDURE: MR THORACIC SPINE WO CON INDICATIONS: T12 COMPRESSION FRACTURE TECHNIQUE: Noncontrast sagittal T1 spine echo and T2 fast spin echo, sagittal STIR, and T2 fast spin echo through the thoracic spine. COMPARISON: [facility], CT, CT THORACIC SPINE WO CON, 06/13/2024, 12:40. FINDINGS: Image quality: Excellent. Alignment and Curvature: There is normal bony alignment. Bone Marrow: Marrow is of normal overall signal. Superior endplate deformity with height loss of approximately 50% at T12 is unchanged compared to CT. There is hyperintense STIR and hypointense linear T1 signal. No retropulsion. Spinal Cord: Visualized spinal cord is normal in size and signal. Paraspinous Soft Tissues: No paravertebral masses. Miscellaneous: On axial images, central canal and foramina appear widely patent at all scanned levels. Scattered multilevel disc desiccation is present. Trace disc bulge at T6-7, T9-10 protrusions at T7-8, T8-9. IMPRESSION: Subacute T12 compression deformity with stable 50% height loss. Dictated by: Irena Del Rosario M.D. on 06/16/2024 at 16:53 Approved by: Irena Del Rosario M.D. on 06/16/2024 at 16:57
== END ==
PROVIDERS: PCP Family Medicine; Referring Provider Chiropractor Independent Medical Examiner; Visit Provider Chiropractor Independent Medical Examiner
DX: S22.080A Wedge compression fracture of T11-T12 vertebra, initial encounter for closed fracture (principal)
CPT/HCPCS: 72146

== ENCOUNTER → 2024-07-26 07:07 | Outpatient (CLI) | payer OTHER, SELFPAY ==
--- NOTE | 2024-07-26 07:09 | DI.MRI.S_ITS ---
PROCEDURE: MR THORACIC SPINE WO CON INDICATIONS: Wedge compression fracture of T11-T12 vertebra TECHNIQUE: Noncontrast sagittal T1 spine echo and T2 fast spin echo, sagittal STIR, and T2 fast spin echo through the thoracic spine. COMPARISON: [facility], , MR THORACIC SPINE WO CON, 06/15/2024, 17:37. FINDINGS: Image quality: Excellent. Alignment and Curvature: Mild dextrocurvature. Bone Marrow: Mild multilevel degenerative endplate changes. Marrow is of normal overall signal. Stable appearance of mild compression deformity of T12 superior endplate with resolution of edema. No acute vertebral body compression fractures. Spinal Cord: Visualized spinal cord is normal in size and signal. Paraspinous Soft Tissues: No paravertebral masses. Miscellaneous: Redemonstration of degenerative changes with multilevel disc desiccation height loss and mild posterior disc bulges. On axial images, central canal and foramina appear widely patent at all scanned levels. IMPRESSION: Stable mild compression deformity of T12 with resolution of edema. No new vertebral body compression deformities. Redemonstration of mild degenerative changes of the thoracic spine. Dictated by: Jerson Turcios M.D. on 07/26/2024 at 11:19 Approved by: Jerson Turcios M.D. on 07/26/2024 at 11:21
== END ==
PROVIDERS: PCP Family Medicine; Referring Provider Chiropractor Independent Medical Examiner; Visit Provider Chiropractor Independent Medical Examiner
DX: S22.080D Wedge compression fracture of T11-T12 vertebra, subsequent encounter for fracture with routine healing (principal); M47.814 Spondylosis without myelopathy or radiculopathy, thoracic region
CPT/HCPCS: 72146

== ENCOUNTER → 2024-11-05 08:11 | Outpatient (CLI) | payer OTHER, SELFPAY ==
[2024-11-08 11:13] LABS: Fecal Immunochemical Test Negative (Negative)
== END ==
PROVIDERS: PCP Family Medicine; Referring Provider Family Medicine; Visit Provider Family Medicine
DX: Z12.11 Encounter for screening for malignant neoplasm of colon (principal)
CPT/HCPCS: 82274

== ENCOUNTER → 2024-11-25 06:54 | Outpatient (CLI) | payer OTHER, SELFPAY ==
[2024-11-25 07:58] LABS: Alanine Aminotransferase 21 IU/L (<35); Albumin 4.2 g/dL (3.5-5.0); Albumin Globulin Ratio 1.8 (1.0-2.8); Alkaline Phosphatase 65 U/L (38-126); Aspartate Aminotransferase 35 IU/L (14-36); BUN Creatinine Ratio 26.3 (6-22); Bilirubin Total 0.5 mg/dL (0.2-1.3); Blood Urea Nitrogen 21 mg/dL (7-17); Calcium 8.7 mg/dL (8.4-10.2); Carbon Dioxide 25 mmol/L (22-32); Chloride 106 mmol/L (98-107); Cholesterol 237 mg/dL (140-199); Estimated Glomerular Filt Rate > 60 mL/min (>60); Globulin 2.3 g/dL (1.7-4.1); Glucose 90 mg/dL (70-99); HDL Cholesterol 63 mg/dL (40-60); HEMOLYSIS < 15 (0-50); LDL Cholesterol Calculated 148 mg/dL (<100); Potassium 4.2 mmol/L (3.4-5.1); Sodium 138 mmol/L (137-145); Total Protein 6.5 g/dL (6.3-8.2); Triglycerides 130 mg/dL (35-150)
[2024-11-25 08:25] LABS: TSH w/ Reflex to FT4 2.49 uIU/mL (0.47-4.68)
[2024-11-25 08:31] LABS: Ferritin 30 ng/mL (11-264)
[2024-11-25 09:43] LABS: Follicle Stimulating Hormone 39.3 mIU/mL
[2024-11-26 04:08] LABS: CRP, High Sensitivity 2.81 mg/L (0.00-3.00)
[2024-11-26 07:11] LABS: Insulin Level Total 7.8 uIU/mL (2.6-24.9)
[2024-11-26 07:36] LABS: Dehydroepiandrosterone Sulfate 28.2 ug/dL (29.4-220.5)
== END ==
PROVIDERS: PCP Family Medicine; Referring Provider Family Medicine; Visit Provider Family Medicine
DX: E66.9 Obesity, unspecified (principal); E03.9 Hypothyroidism, unspecified; K76.89 Other specified diseases of liver; E88.810 Metabolic syndrome; Z79.890 Hormone replacement therapy
CPT/HCPCS: 36415; 80053; 80061; 82627; 82670; 82728; 83001; 83525; 84443; 86140

== ENCOUNTER → 2024-12-09 16:20 | Outpatient (CLI) | payer OTHER, SELFPAY | LOC: LAB 16:21 | PROVIDERS: PCP Family Medicine; Visit Provider Family Medicine | DX: Z00.01 Encounter for general adult medical examination with abnormal findings (principal); N89.8 Other specified noninflammatory disorders of vagina | CPT/HCPCS: 87210 ==